=== PATIENT | male | born 1985 | race Caucasian/White ===

== ENCOUNTER 2017-01-14 22:42 | Emergency (ER) | payer MEDICAID, OTHER ==
[~2017-01-14] VITALS: Ht 180.3 cm; Wt 120.2 kg
[~2017-01-14 22:42] MED LIST: MOTRIN800 MG PO; NORCO 10/325 MG1 TAB PO; ZANAFLEX4 MG PO
[2017-01-14 23:16] VITALS: BP 135/75
--- NOTE | 2017-01-14 23:29 | NUR ---
PT TAKEN TO BED 8
--- NOTE | 2017-01-14 23:34 | NUR ---
PT C/O LOWER BACK PAIN X 3 DAYS, NO PROBLEMS VOIDING. PAIN RADIATES FROM LOWER BACK TO LEGS. HX: HYOGLYCEMIA, NO MEDS AT THIS TIME.
--- NOTE | 2017-01-14 23:51 | NUR ---
Dr. Nolasco evaluating patient at bedside.
[2017-01-14] MEDS ORDERED: KETOROLAC 30 MG/ML VIAL IM ONE (23:55)
[2017-01-14] MEDS ORDERED: DIAZEPAM 5 MG TAB PO ONE (23:55)
--- NOTE | 2017-01-15 00:06 | NUR ---
PT TAKEN TO XRAY
[2017-01-15 00:53] VITALS: BP 131/73
--- NOTE | 2017-01-15 00:55 | NUR ---
Patient discharged with v/s stable. Written and verbal after care instructions given and explained. Patient alert, oriented and verbalized understanding of instructions. Ambulatory with steady gait. All questions addressed prior to discharge. ID band removed. Patient advised to follow up with PMD. Rx of NAPROSYN 500MG PO, VALIUM 5MG PO given. Patient educated on indication of medication including possible reaction and side effects. Opportunity to ask questions provided and answered.
== END 2017-01-15 00:55 | disposition home or self-care (01) ==
LOC: MED 22:42
DX: M54.5 Low back pain (principal); Z88.1 Allergy status to other antibiotic agents
CPT/HCPCS: 72220; 81002; 82948; 96372; 99284; J1885